=== PATIENT | male | born 1975 | race Caucasian/White ===

== ENCOUNTER 2018-06-18 09:59 | Emergency (ER) | payer BC, OTHER ==
[2018-06-18 10:15] VITALS: BP 131/94
[2018-06-18] MEDS ORDERED: Ibuprofen TAB* 400 MG PO ONE (10:39)
--- NOTE | 2018-06-18 11:22 | RAD ---
Indication: Right ankle injury. 3 views of the right ankle demonstrate soft tissue swelling laterally. Ankle mortise is intact. No definite fracture is noted. IMPRESSION: Soft tissue swelling laterally without fracture.
--- NOTE | 2018-06-18 13:41 | ED ---
Lower Extremity - HPI Summary HPI Summary: Patient is a 42-year-old male who presents emergency department for right ankle injury that occurred at work just prior to arrival. 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 No other injuries were sustained. Patient states he is unable to bear weight secondary to pain. Denies numbness, tingling or weakness. Symptoms are mild in severity. Walking and moving ankle makes symptoms worse. Rest makes symptoms better. - History of Current Complaint Chief Complaint: EDExtremityLower Stated Complaint: RT ANKLE INJURY Time Seen by Provider: 06/18/18 10:18 Hx Obtained From: Patient Pain Intensity: 0 Pain Scale Used: 0-10 Numeric - Allergies/Home Medications Allergies/Adverse Reactions: Allergies Allergy/AdvReac Type Severity Reaction Status Date / Time cat dander Allergy Anaphylatic Verified 06/18/18 11:01 Shock Home Medications: Home Medications NK [No Home Medications Reported] 06/18/18 [History Confirmed 06/18/18] PMH/Surg Hx/FS Hx/Imm Hx Previously Healthy: Yes Endocrine/Hematology History: Denies: Hx Diabetes Cardiovascular History: Denies: Hx Hypertension, Hx Pacemaker/ICD History: Denies: Hx Renal Disease Sensory History: Denies: Hx Hearing Aid Psychiatric History: Denies: Hx Panic Disorder - Surgical History Surgery Procedure, Year, and Place: ADNOIDS REMOVED. MOLES REMOVED - BENIGN Infectious Disease History: No Infectious Disease History: Denies: History Other Infectious Disease, Traveled Outside the [place] in Last 30 Days - Family History Known Family History: Negative: Cardiac Disease, Hypertension, Diabetes - Social History Occupation: Employed Full-time Lives: With Family Alcohol Use: Occasionally Substance Use Type: Reports: None Smoking Status (MU): Light Every Day Tobacco Smoker Type: Cigarettes Amount Used/How Often: 1/2 or less Review of Systems Positive: Other - Right ankle pain Neurological: Negative Negative: Weakness, Paresthesia, Numbness All Other Systems Reviewed And Are Negative: Yes Physical Exam Triage Information Reviewed: Yes Vital Signs On Initial Exam: Initial Vitals Temp Pulse Resp BP Pulse Ox 98.4 F 90 18 131/94 97 06/18/18 10:11 06/18/18 10:11 06/18/18 10:11 06/18/18 10:11 06/18/18 10:11 Vital Signs Reviewed: Yes Appearance: Positive: Well-Appearing - Pt. lying in bed in NAD. present. Skin: Positive: Warm, Dry Head/Face: Positive: Normal Head/Face Inspection Eyes: Positive: Normal, EOMI Musculoskeletal: Positive: Other - Mild edema and pain to the right lateral malleolus. Good palpable pedal pulse. No breaks in the skin. No pain to the foot on palpation over pain over the base of the fifth metatarsal. No proximal tib-fib or knee pain. Achilles tendon is intact. Neurological: Positive: Normal Psychiatric: Positive: Affect/Mood Appropriate Procedures - Splinting Right Location: right ankle Pre-Made Type: air splint Pre-Proc Neuro Vasc Exam: normal Post-Proc Neuro Vasc Exam: normal Diagnostics - Vital Signs Vital Signs Temp Pulse Resp BP Pulse Ox 06/18/18 10:11 98.4 F 90 18 131/94 97 - Laboratory Lab Statement: Any lab studies that have been ordered have been reviewed, and results considered in the medical decision making process. Lower Extremity Course/Dx - Course Course Of Treatment: Patient presenting with isolated ankle injury. He was given a dose of Motrin for pain. X-ray shows soft tissue swelling without fracture dislocation, reading per radiology. Results discussed. Ankle was splinted and crutched. Advised to f.u with ortho. for further evaluation if pain persist. To ice and elevate. Tylenol or motrin for pain as directed. pt. understands and agrees with plan. - Diagnoses Differential Diagnosis/HQI/PQRI: Positive: Contusion, Fracture (Closed), Sprain , Strain Provider Diagnoses: Ankle sprain Discharge - Sign-Out/Discharge Documenting (check all that apply): Patient Departure - Discharge Plan Condition: Good Disposition: HOME Patient Education Materials: Ankle Sprain (ED) Forms: *Work Release Referrals: Sathya Garcia MD [Primary Care Provider] - Aristeo Mills MD [Medical Doctor] - Additional Instructions: Schedule a follow up appointment with orthopedics if pain persist Ice and elevate Wear splint and crutches for comfort Tylenol or Motrin for pain as directed Return to ER if symptoms change or worsen - Billing Disposition and Condition Condition: GOOD Disposition: Home
== END 2018-06-18 12:12 | disposition home or self-care (01) ==
LOC: ED 09:59
DX: S93.401A Sprain of unspecified ligament of right ankle, initial encounter (principal); X50.0XXA Overexertion from strenuous movement or load, initial encounter; Y92.9 Unspecified place or not applicable; F17.210 Nicotine dependence, cigarettes, uncomplicated
CPT/HCPCS: 99282; A9270-GY

== ENCOUNTER 2018-08-02 09:42 | Emergency (ER) | payer BC ==
[2018-08-02 09:52] VITALS: BP 132/95
--- NOTE | 2018-08-02 09:54 | UC ---
Throat Pain/Nasal Cameron HPI - HPI Summary HPI Summary: 42 yo male presents with sore throat and sinus congestion. He tells me that his sinus congestion and pressure began 3 days ago and his sore throat began this morning. He has had close contacts dx'd with strep and is requesting treatment today. He has not taken anything OTC for his symptoms. Denies fever, chills, cough, SOB, chest pain, rash. - History of Current Complaint Chief Complaint: UCGeneralIllness Stated Complaint: SORE THROAT Time Seen by Provider: 08/02/18 09:54 Hx Obtained From: Patient Onset/Duration: Gradual Onset Severity: Moderate Pain Intensity: 5 Pain Scale Used: 0-10 Numeric - Allergies/Home Medications Allergies/Adverse Reactions: Allergies Allergy/AdvReac Type Severity Reaction Status Date / Time cat dander Allergy Anaphylatic Verified 08/02/18 09:52 Shock PMH/Surg Hx/FS Hx/Imm Hx - Additional Past Medical History Additional PMH: None - Surgical History Surgical History: Yes Surgery Procedure, Year, and Place: ADNOIDS REMOVED. MOLES REMOVED - BENIGN - Family History Known Family History: Negative: Cardiac Disease, Hypertension, Diabetes - Social History Occupation: Employed Full-time Lives: With Family Alcohol Use: Occasionally Substance Use Type: None Smoking Status (MU): Former Smoker Type: Cigarettes Amount Used/How Often: 1/2 or less Review of Systems All Other Systems Reviewed And Are Negative: Yes Constitutional: Positive: Negative Skin: Positive: Negative Eyes: Positive: Negative ENT: Positive: Sore Throat, Nasal Discharge, Sinus Congestion, Sinus Pain/ Tenderness Respiratory: Positive: Negative Cardiovascular: Positive: Negative Gastrointestinal: Positive: Negative Neurovascular: Positive: Negative Neurological: Positive: Negative Psychological: Positive: Negative Physical Exam - Summary Physical Exam Summary: GENERAL: NAD. WDWN. No pain distress. SKIN: No rashes, sores, lesions, or open wounds. HEENT: Head: AT/NC Eyes: EOM intact. Conjunctiva clear without inflammation or discharge. Ears: Hearing grossly normal. TMs intact, no bulging, erythema, or edema. Nose: Nasal mucosa pink and moist. NTTP maxillary and frontal sinus. Throat: Posterior oropharynx with mild erythema. No exudates. Uvula midline. NECK: Supple. Nontender. No lymphadenopathy. CHEST: CTAB. No r/r/w. No accessory muscle use. Breathing comfortably and in no distress. CV: RRR. Without m/r/g. Pulses intact. Cap refill <2seconds NEURO: Alert. PSYCH: Age appropriate behavior. Triage Information Reviewed: Yes Vital Signs: Initial Vital Signs Temp 98.7 F 08/02/18 09:49 Pulse 92 08/02/18 09:49 Resp 18 08/02/18 09:49 BP 132/95 08/02/18 09:49 Pulse Ox 98 08/02/18 09:49 Vital Signs Reviewed: Yes Throat Pain/Nasal Course/Dx - Course Course Of Treatment: Pt refusing strep test today stating that he "knows he has strep". Discussed that his symptoms could be viral in nature, but he is adamantly requesting treatment with anbx today. - Differential Dx/Diagnosis Provider Diagnoses: Pharyngitis Discharge - Sign-Out/Discharge Documenting (check all that apply): Patient Departure All imaging exams completed and their final reports reviewed: No Studies - Discharge Plan Condition: Stable Disposition: HOME Prescriptions: Amoxicillin PO (*) [Amoxicillin 500 MG CAP*] 500 mg PO Q12H #14 cap Patient Education Materials: Pharyngitis (ED) Referrals: Sathya Garcia MD [Primary Care Provider] - Additional Instructions: If you develop a fever, shortness of breath, chest pain, new or worsening symptoms - please call your PCP or go to the ED. Your blood pressure was high at todays visit. Please see your primary provider within 4 weeks for recheck and re-evaluation. - Billing Disposition and Condition Condition: STABLE Disposition: Home
== END 2018-08-02 10:09 | disposition home or self-care (01) ==
LOC: UCEAST 09:42
DX: J02.9 Acute pharyngitis, unspecified (principal); Z87.891 Personal history of nicotine dependence
CPT/HCPCS: 99202; G0463

== ENCOUNTER → 2018-10-03 19:41 | Emergency (ER) | payer BC, OTHER ==
[~2018-10-03 19:41] MED LIST: EPINEPHRINE 1 MG/ML 1 ML VIAL IM ONE; EPINEPHRINE 1 MG/ML 1 ML VIAL ONE; Famotidine IV* 10 MG/ML 2 ML (20 mg) IV SLOW PU ONE; Famotidine IV* 10 MG/ML 2 ML (20 mg) ONE; NS 0.9% 1000 ML* 1,000 ML IV ONE; diPHENhydraMINE IV* 50 MG/ML 1 ml VIAL (BENADRYL) IV ONE; diPHENhydraMINE IV* 50 MG/ML 1 ml VIAL (BENADRYL) ONE; methylPREDNISolone 125 MG* 2 ML VIAL IV ONE; methylPREDNISolone 125 MG* 2 ML VIAL ONE
[2018-10-03 20:50] LABS: Hematocrit 41 % (42-52); Hemoglobin 14.2 g/dl (14.0-18.0); Mean Corpuscular HGB Conc 35 g/dl (31-36); Mean Corpuscular Hemoglobin 31 pg (27-31); Mean Corpuscular Volume 88 fL (80-94); Mean Platelet Volume 6.8 fL (7.4-10.4); Platelet Count 230 10^3/ul (150-450); Red Blood Count 4.67 10^6/ul (4.00-5.40); Red Cell Distribution Width 13 % (10.5-15); White Blood Count 7.4 10^3/ul (3.5-10.8)
[2018-10-03 21:08] LABS: Albumin 3.8 g/dL (3.2-5.2); Albumin/Globulin Ratio 1.8 (1-3); BUN/Creatinine Ratio 25.3 (8-20); Calcium 8.7 mg/dL (8.6-10.3); EGFR African American 129.5 (>60); Globulin 2.1 g/dL (2-4); Potassium 3.3 mmol/L (3.5-5.0); Total Bilirubin 1.2 mg/dL (0.2-1.0); Total Protein 5.9 g/dL (6.4-8.9)
[2018-10-03 21:39] VITALS: BP 141/78
--- NOTE | 2018-10-03 22:11 | ED ---
Allergic Reaction/Systemic - HPI Summary HPI Summary: A 43 y/o male brought in by ambulance accompanied by family presents to the ED c /o allergic reaction. In the ED room, the patient has a pulse of 111 BPM, O2 saturation of 96%, respiratory rate of 15, and blood pressure of 141/102. According to the patient, his hands, feet, tongue, and face was swelling and was itching. His voice was sounding course and thick. Additionally, his tongue was very swollen. Patient's speech is not clear. The patient took Benadryl before arrival. Patient stated that today he tried a new place to eat and washed his clothes with a new detergent. Patient stated that he took Shaila and Benadryl earlier. Patient has chills. Patient takes Albuterol. - History of Current Complaint Chief Complaint: EDAllergicReaction Time Seen by Provider: 10/03/18 20:03 Hx Obtained From: Patient Onset/Duration: Sudden Onset, Started minutes ago Timing: Constant Severity Currently: None Pain Intensity: 0 Pain Scale Used: 0-10 Numeric Character: Swelling Aggravating Factor(s): OTC Meds Alleviating Factor(s): Nothing Associated Signs And Symptoms: Positive: Negative - Allergies/Home Medications Allergies/Adverse Reactions: Allergies Allergy/AdvReac Type Severity Reaction Status Date / Time cat dander Allergy Anaphylatic Verified 08/02/18 09:52 Shock Home Medications: Home Medications Fexofenadine HCl 180 mg PO DAILY 10/03/18 [History Confirmed 10/03/18] PMH/Surg Hx/FS Hx/Imm Hx Endocrine/Hematology History: Denies: Hx Diabetes Cardiovascular History: Denies: Hx Hypertension, Hx Pacemaker/ICD History: Denies: Hx Renal Disease Sensory History: Denies: Hx Hearing Aid Psychiatric History: Denies: Hx Panic Disorder - Surgical History Surgery Procedure, Year, and Place: ADNOIDS REMOVED. MOLES REMOVED - BENIGN Infectious Disease History: Denies: History Other Infectious Disease, Traveled Outside the [place] in Last 30 Days - Family History Known Family History: Negative: Cardiac Disease, Hypertension, Diabetes - Social History Alcohol Use: Occasionally Substance Use Type: Reports: None Smoking Status (MU): Former Smoker Type: Cigarettes Amount Used/How Often: 1/2 or less Review of Systems Positive: Chills. Negative: Fever Negative: Erythema Negative: Sore Throat Negative: Chest Pain Negative: Shortness Of Breath Negative: Abdominal Pain, Vomiting, Nausea Negative: dysuria, hematuria Negative: Myalgia, Edema Skin: Other - SWELLING DIFFUSELY. Negative: Rash Neurological: Other - NEGATIVE: DIZZINESS All Other Systems Reviewed And Are Negative: Yes Physical Exam - Summary Physical Exam Summary: Constitutional: Well-developed, Well-nourished, Alert. (-) Distressed Skin: Diffuse hives, appear to have mild tongue angioedema, no pharyngeal angioedema, no uvular angioedema, no trismus. HENT: Normocephalic; Atraumatic Eyes: Conjunctiva normal Neck: Musculoskeletal ROM normal neck. (-) JVD, (-) Stridor, (-) Tracheal deviation Cardio: Rhythm regular, rate normal, Heart sounds normal; Intact distal pulses; The pedal pulses are 2+ and symmetric. Radial pulses are 2+ and symmetric. (-) Murmur Pulmonary/Chest wall: Effort normal. (-) Respiratory distress, (-) Wheezes, (-) Rales Abd: Soft, (-) epigastric tenderness, (-) Distension, (-) Guarding, (-) Rebound Musculoskeletal: (-) Edema Lymph: (-) Cervical adenopathy Neuro: Alert, Oriented x3 Psych: Mood and affect Normal Triage Information Reviewed: Yes Vital Signs On Initial Exam: Initial Vitals Pulse Resp BP Pulse Ox 102 23 141/102 95 10/03/18 19:41 10/03/18 19:41 10/03/18 19:41 10/03/18 19:41 Vital Signs Reviewed: Yes Diagnostics - Vital Signs Vital Signs Temp Pulse Resp BP Pulse Ox 10/03/18 21:25 21 141/78 10/03/18 21:10 14 140/77 10/03/18 21:00 19 10/03/18 20:55 87 15 135/89 95 10/03/18 20:40 99 19 122/73 98 10/03/18 20:24 85 17 130/88 95 10/03/18 20:09 86 19 134/90 94 10/03/18 20:00 90 17 96 10/03/18 19:55 85 20 148/105 95 10/03/18 19:47 107 21 95 10/03/18 19:43 98.9 F 120 22 141/102 94 10/03/18 19:41 102 23 141/102 95 - Laboratory Lab Results: Lab Results 10/03/18 10/03/18 Range/Units 20:41 20:41 WBC 7.4 (3.5-10.8) 10^3/ul RBC 4.67 (4.00-5.40) 10^6/ul Hgb 14.2 (14.0-18.0) g/dl Hct 41 L (42-52) % MCV 88 (80-94) fL MCH 31 (27-31) pg MCHC 35 (31-36) g/dl RDW 13 (10.5-15) % Plt Count 230 (150-450) 10^3/ul MPV 6.8 L (7.4-10.4) fL Sodium 139 (135-145) mmol/L Potassium 3.3 L (3.5-5.0) mmol/L Chloride 107 (101-111) mmol/L Carbon Dioxide 24 (22-32) mmol/L Anion Gap 8 (2-11) mmol/L BUN 20 (6-24) mg/dL Creatinine 0.79 (0.67-1.17) mg/dL Est GFR ( Amer) 129.5 (>60) Est GFR (Non-Af Amer) 107.0 (>60) BUN/Creatinine Ratio 25.3 H (8-20) Glucose 216 H (70-100) mg/dL Calcium 8.7 (8.6-10.3) mg/dL Total Bilirubin 1.20 H (0.2-1.0) mg/dL AST 16 (13-39) U/L ALT 24 (7-52) U/L Alkaline Phosphatase 61 (34-104) U/L Total Protein 5.9 L (6.4-8.9) g/dL Albumin 3.8 (3.2-5.2) g/dL Globulin 2.1 (2-4) g/dL Albumin/Globulin Ratio 1.8 (1-3) Result Diagrams: 10/03/18 20:41 10/03/18 20:41 Lab Statement: Any lab studies that have been ordered have been reviewed, and results considered in the medical decision making process. Re-Evaluation - Re-Evaluation First Eval Re-Evaluation Time: 21:27 Change: Improved Comment: PATIENT FEELS MUCH BETTER. Allergic Reaction Course/Dx - Course Course Of Treatment: A 43 y/o male brought in by ambulance accompanied by family presents to the ED c/o allergic reaction. In the ED room, the patient has a pulse of 111 BPM, O2 saturation of 96%, respiratory rate of 15, and blood pressure of 141/102. According to the patient, his hands, feet, tongue, and face was swelling and was itching. His voice was sounding course and thick. Additionally, his tongue was very swollen. Patient's speech is not clear. The patient took Benadryl before arrival. Patient stated that today he tried a new place to eat and washed his clothes with a new detergent. Patient stated that he took Shaila and Benadryl earlier. Patient has chills. Patient takes Albuterol. Physical examination findings significant for diffuse hives, appear to have mild tongue angioedema, no pharyngeal angioedema, no uvular angioedema, no trismus. No laboratory scans were done. Hematology and Chemistry screens were done. No significant laboratory abnormalities were found except hyperglycemia of 216 mg/dL. In the ED course, the patient received Benadryl, Adrenalin, Pepcid, Solu-Medrol, and IV fluids. During re-evaluation, the patient revealed he was feeling much better as his symptoms resolved. Patient will be discharged with a diagnosis of anaphylaxis. Patient was advised to follow up with primary care provider in 3 days. Patient was advised to take Benadryl every 4-6 hours for the next couple days. Patient was encouraged to stop using the new detergent and rewash his clothes in the old one. Patient will be provided with Epi Pens. Patient is to return to ED for any new or worsening symptoms. Patient is agreeable with this plan. - Diagnoses Provider Diagnoses: Anaphylaxis Discharge - Sign-Out/Discharge Documenting (check all that apply): Patient Departure - DISCHARGE - Discharge Plan Condition: Stable Disposition: HOME Prescriptions: predniSONE TAB* [Deltasone TAB*] 50 mg PO DAILY #4 tab Patient Education Materials: Anaphylaxis (ED) Referrals: Sathya Garcia MD [Primary Care Provider] - 3 Days Additional Instructions: FOLLOW UP WITH PRIMARY CARE PROVIDER IN 3 DAYS. TAKE DELTASONE PRESCRIBED. RETURN TO ED FOR ANY NEW OR WORSENING SYMPTOMS. - Attestation Statements Document Initiated by Scribe: Yes Documenting Scribe: Adiel Moreno Provider For Whom Scribe is Documenting (Include Credential): Shelton Lynch MD Scribe Attestation: IAdiel, scribed for Shelton Lynch MD on 10/03/18 at 2247. Status of Scribe Document: Ready
== END | disposition home or self-care (01) ==
LOC: ED 19:41
DX: T78.2XXA Anaphylactic shock, unspecified, initial encounter (principal); M79.89 Other specified soft tissue disorders; R47.9 Unspecified speech disturbances; R68.83 Chills (without fever); Z87.891 Personal history of nicotine dependence
CPT/HCPCS: 36415; 80053; 85027; 96372; 96374; 96375; 96376; 99283; J1200; J2930

== ENCOUNTER 2023-12-26 19:20 | Observation (INO) ==
[2023-12-26] MEDS: Lactated Ringers 1000 ml BAG 1,000 ML IV SCH (19:45)
[2023-12-26 19:59] LABS: ABS Basophils 0.1 10^3/uL (0.0-0.1); ABS Eosinophils 0.1 10^3/uL (0.0-0.5); ABS Lymphocytes 1.3 10^3/uL (1.0-4.8); ABS Monocytes 0.7 10^3/uL (0.0-1.1); ABS Neutrophils 7.9 10^3/uL (1.5-7.6); ABS Nucleated RBC 0.01 10^3/ul; Eosinophil % 0.9 %; Hematocrit 33.4 % (38-53); Hemoglobin 11.7 g/dL (13.2-16.3); Lymphocyte % 13.1 %; Mean Corpuscular Hemoglobin 30.9 pg (27-33); Mean Corpuscular Volume 88.2 fL (80-97); Mean Platelet Volume 7.2 fL (7.5-11.2); Nucleated Red Blood Cells % 0.1 %/100WBC (0.0-0.8); Platelet Count 232 10^3/uL (150-450); Red Blood Count 3.79 10^6/uL (4.06-5.63); Red Cell Distribution Width 13.1 % (12-17)
[2023-12-26 20:05] LABS: INR 1.16 (0.83-1.13)
[2023-12-26 20:21] LABS: Albumin 3.6 g/dL (3.2-5.2); Albumin/Globulin Ratio 2.4 (1-3); Calcium 7.5 mg/dL (8.6-10.3); Creatinine, Serum 1.04 mg/dL (0.67-1.17); Globulin 1.5 g/dL (2-4); Total Bilirubin 1.8 mg/dL (0.2-1.0); Total Protein 5.1 g/dL (6.4-8.9); eGFR CKD-EPI 88.6 (>60)
[2023-12-26] MEDS ORDERED: Flumazenil 0.5 mg/5 ml 0.1 MG/ML 5 ml VIAL IV PRN (20:47)
[2023-12-26] MEDS ORDERED: Naloxone 0.4 mg VIAL 0.4 mg/ml 1 ml VIAL IV PUSH PRN (20:47)
[2023-12-26] MEDS: Lactated Ringers 1000 ml BAG 1,000 ML IV ONE (23:14)
[2023-12-26] MEDS: fentaNYL 100 mcg/2 ml 50 MCG/ML VIAL IV SLOW PU ONE (23:14)
[2023-12-26] MEDS: Midazolam 10 mg/10 ml VIAL 1 mg/ml 10 ml VIAL (10 mg) IV SLOW PU ONE (23:15)
[2023-12-26] MEDS: Lidocaine 2% JELLY 6 ML Topical TOPICAL ONE (23:15)
[2023-12-26] MEDS: Ondansetron 4 mg VIAL 2 MG/ML 2 ml VIAL IV ONE (23:15)
[2023-12-27] MEDS: Acetaminophen IV 1 GM/100ML 1,000 MG/100 ML BAG IV ONE (01:56)
[2023-12-27] MEDS: Lactated Ringers 1000 ml BAG 1,000 ML IV SCH (01:56)
[2023-12-27 02:04] LABS: Hematocrit 24.9 % (38-53); Hemoglobin 8.8 g/dL (13.2-16.3)
[2023-12-27 02:42] LABS: ABS Basophils 0.1 10^3/uL (0.0-0.1); ABS Lymphocytes 0.6 10^3/uL (1.0-4.8); ABS Monocytes 0.8 10^3/uL (0.0-1.1); ABS Neutrophils 11.3 10^3/uL (1.5-7.6); Eosinophil % 0.1 %; Hematocrit 29.4 % (38-53); Hemoglobin 10.4 g/dL (13.2-16.3); Lymphocyte % 4.8 %; Mean Corpuscular Hemoglobin 30.9 pg (27-33); Mean Corpuscular Hgb Conc 35.4 g/dL (31-36); Mean Corpuscular Volume 87.4 fL (80-97); Mean Platelet Volume 7.1 fL (7.5-11.2); Platelet Count 193 10^3/uL (150-450); Red Blood Count 3.36 10^6/uL (4.06-5.63); Red Cell Distribution Width 13.3 % (12-17); White Blood Count 12.8 10^3/uL (3.6-10.2)
[2023-12-27 06:08] LABS: ABS Basophils 0.1 10^3/uL (0.0-0.1); ABS Lymphocytes 1.2 10^3/uL (1.0-4.8); ABS Monocytes 0.8 10^3/uL (0.0-1.1); ABS Neutrophils 10.8 10^3/uL (1.5-7.6); Eosinophil % 0.1 %; Hemoglobin 9.7 g/dL (13.2-16.3); Lymphocyte % 9.7 %; Mean Corpuscular Hemoglobin 30.5 pg (27-33); Mean Corpuscular Hgb Conc 34.7 g/dL (31-36); Mean Platelet Volume 7.3 fL (7.5-11.2); Platelet Count 179 10^3/uL (150-450); Red Blood Count 3.18 10^6/uL (4.06-5.63); Red Cell Distribution Width 12.9 % (12-17); White Blood Count 12.9 10^3/uL (3.6-10.2)
[2023-12-27 06:39] LABS: Calcium 7.5 mg/dL (8.6-10.3); Creatinine, Serum 0.82 mg/dL (0.67-1.17); Potassium 3.5 mmol/L (3.5-5.0); eGFR CKD-EPI 108.4 (>60)
[2023-12-27 08:18] VITALS: BP 105/75
[2023-12-27] MEDS ORDERED: Albuterol HFA INHALER 8 gm MDI INH PRN (09:00)
== END 2023-12-27 08:17 | disposition home or self-care (01) ==
LOC: ED 19:20 → EDHOLD 19:20 → SUATTDRO 12-27 00:18 → EDHOLD 12-27 08:24
PROVIDERS: ADMIT Internal Medicine; ATTEND Student in an Organized Health Care Education/Training Program